=== PATIENT | male | born 1975 | race Caucasian/White ===

== ENCOUNTER 2020-01-14 16:36 | Inpatient (IN) | payer SELFPAY ==
[~2020-01-14] VITALS: Ht 177.8 cm; Wt 64.6 kg
[2020-01-14] MEDS ORDERED: SODIUM CHLORIDE 0.9% 1,000 ML IV ONE (17:52)
[2020-01-14 18:39] LABS: CHLORIDE 86 mEq/L (98-107)
[2020-01-14 18:42] LABS: *COCAINE SCREEN URINE NEGATIVE (NEGATIVE); HEMATOCRIT. 39.3 % (42.0-52.0); HEMOGLOBIN. 13.6 g/dL (14.0-18.0); MEAN CORPUSCULAR HEMOGLOBIN 31.2 pg (28.0-32.0); MEAN CORPUSCULAR VOLUME 89.9 fL (80.0-94.0); MEAN PLATELET VOLUME 10.1 fl (7.4-10.4); METHADONE URINE SCREEN NEGATIVE (NEGATIVE); OPIATES URINE SCREEN NEGATIVE (NEGATIVE); PLATELET 228 x1000/uL (130-400); RED BLOOD CELL COUNT 4.37 mill/uL (4.7-6.1); RED CELL DISTRIBUTION WIDTH 12.6 % (11.6-14.6)
[2020-01-14 18:43] LABS: *AMPHETAMINES SCREEN URINE NEGATIVE (NEGATIVE); *BARBITURATES SCREEN URINE NEGATIVE (NEGATIVE); *BENZODIAZEPINES SCREEN URINE NEGATIVE (NEGATIVE); CANNABINOID URINE SCREEN PRESUMTIVE POSITIVE (NEGATIVE); ETHANOL BLOOD < 10 mg/dL; PHENCYCLIDINE URINE SCREEN NEGATIVE (NEGATIVE)
[2020-01-14] MEDS ORDERED: LORAZEPAM 2MG/ML CPJ IV ONE (18:45)
[2020-01-14] MEDS ORDERED: POTASSIUM CHLORIDE 20MEQ TABLET SR PO ONE (19:30)
[2020-01-14] MEDS ORDERED: SODIUM CHLORIDE 0.9% 1000ML BAG (SEPSIS BOLUS) IV ONE (19:30)
[2020-01-14] MEDS ORDERED: PIPERACILLIN/TAZ 3.375G PREMIX 50 ML IV ONE (19:45)
[2020-01-14 19:54] LABS: BG BASE EXCESS 1.1 mmol/L (-2.0-2.0); BG CARBOXYHEMOGLOBIN 1.7 % (0.5-1.5); BG DEOXYHEMOGLOBIN 1.5 % (0.0-5.0); BG FRACTION INSPIRED OXYGEN 21; BG HCO3 ACT 20.9 mmol/L (22.0-26.0); BG METHEMOGLOBIN 0.2 % (0.0-1.5); BG OXYGEN SATURATION 98.5 % (92.0-98.5); BG OXYHEMOGLOBIN 96.6 % (94.0-97.0); BG PH 7.595 (7.350-7.450); BG PO2 106.8 mmHg (75.0-100.0); BG SAMPLE SITE RIGHT RADIAL; BG TOTAL HEMOGLOBIN 13.7 g/dL (12.0-18.0); BG VENT MODE ROOM AIR
[2020-01-14] MEDS ORDERED: ASPIRIN 81MG TABLET PO ONE (20:00)
[2020-01-14 20:53] LABS: PLATELET ESTIMATE NORMAL
[2020-01-15] VITALS: BP 118/71
[2020-01-15] MEDS ORDERED: ONDANSETRON HCL 4MG/2ML INJ IV PRN (01:30)
[2020-01-15] MEDS ORDERED: NITROGLYCERIN 0.4MG TABLET SL SL PRN (01:30)
[2020-01-15] MEDS ORDERED: MORPHINE SULFATE 2 MG/ML CPJ (NOT FOR IM USE) IV PRN (01:30)
[2020-01-15] MEDS: PIPERACILLIN/TAZOBACTAM 3.375 G in DEXT 5% WATER 100 ML IV SCH ×2 (05:37→14:26)
[2020-01-15] MEDS ORDERED: PIPERACILLIN/TAZOBACTAM 3.375 G/VIAL IV SCH (06:00)
[2020-01-15 06:20] LABS: BASOPHILS % 0.3 % (0.0-2.0); HEMATOCRIT. 35.3 % (42.0-52.0); HEMOGLOBIN. 12.3 g/dL (14.0-18.0); LYMPHOCYTES % 17.1 % (20.0-50.0); MEAN CORPUSCULAR HEMOGLOBIN 31.9 pg (28.0-32.0); MEAN CORPUSCULAR VOLUME 91.7 fL (80.0-94.0); MONOCYTES % 7.9 % (2.0-8.0); NEUTROPHILS % 74.7 % (40.0-76.0); PLATELET 217 x1000/uL (130-400); RED BLOOD CELL COUNT 3.85 mill/uL (4.7-6.1); RED CELL DISTRIBUTION WIDTH 12.4 % (11.6-14.6)
[2020-01-15] MEDS ORDERED: OMEPRAZOLE 20MG CAPSULE EXTENDED RELEASE PO SCH (06:45)
[2020-01-15 06:49] LABS: CHLORIDE 102 mEq/L (98-107)
[2020-01-15 06:56] LABS: LDL CHOLESTEROL 39 mg/dL (5-100)
[2020-01-15 06:57] LABS: HDL CHOLESTEROL 38 mg/dL (40-59)
[2020-01-15 08:00] VITALS: BP 108/64
[2020-01-15] MEDS ORDERED: KETOROLAC 30MG/ML VIAL IV PRN (08:45)
[2020-01-15] MEDS ORDERED: ENOXAPARIN 40MG/0.4ML SYR SUBCUT SCH (09:00)
[2020-01-15] MEDS ORDERED: ASPIRIN 325MG EC TABLET PO SCH (09:00)
[2020-01-15] MEDS ORDERED: METOPROLOL TARTRATE 25MG TABLET PO SCH (09:00)
[2020-01-15 12:00] VITALS: BP 112/71
[2020-01-15 15:51] LABS: CLARITY URINE CLEAR (CLEAR); COLOR URINE YELLOW (YELLOW); KETONES URINE NEGATIVE (NEGATIVE); LEUKOCYTE ESTERASE URINE NEGATIVE (NEGATIVE); NITRITE URINE NEGATIVE (NEGATIVE); OCCULT BLOOD URINE NEGATIVE (NEGATIVE); PROTEIN URINE NEGATIVE (NEGATIVE)
[2020-01-15 16:36] VITALS: BP 131/74
== END 2020-01-15 17:05 | disposition home or self-care (01) | DRG 663 ==
LOC: ER 16:36 → 5WST 19:40 → EDBEDREQ 19:43 → EDBEDREQTM 19:43 → ENRESERV 19:54
PROVIDERS: ADMIT Internal Medicine; ATTEND Internal Medicine
DX: D72.828 Other elevated white blood cell count (principal); D64.9 Anemia, unspecified; E87.1 Hypo-osmolality and hyponatremia; E87.6 Hypokalemia; E87.8 Other disorders of electrolyte and fluid balance, not elsewhere classified; F12.90 Cannabis use, unspecified, uncomplicated; F17.210 Nicotine dependence, cigarettes, uncomplicated; F41.9 Anxiety disorder, unspecified; J45.909 Unspecified asthma, uncomplicated; R07.81 Pleurodynia; R74.0 Nonspecific elevation of levels of transaminase and lactic acid dehydrogenase [LDH]; Z71.6 Tobacco abuse counseling; I69.354 Hemiplegia and hemiparesis following cerebral infarction affecting left non-dominant side
CPT/HCPCS: 36415; 36600; 71045; 71101; 73030; 80048; 80053; 80061; 80305; 80320; 81003; 82375; 82805; 83036; 83605; 83880; 84145; 84484; 85025; 93005; 99291; J1650; J2060; J2270; J2543; J7030; J7060; G0480